=== PATIENT | female | born 1985 | race Caucasian/White ===

== ENCOUNTER 2022-10-08 19:29 | Inpatient (IN) | payer BC, MEDICAID ==
[~2022-10-08] VITALS: Ht 162.6 cm; Wt 62.2 kg
[2022-10-08 20:33] VITALS: BP_SYST 115
[2022-10-08 20:39] LABS: BASOPHILS % (AUTO) 0.4 % (0.0-2.0); EOSINOPHILS # (AUTO) 0.1 K/uL (0.0-0.4); EOSINOPHILS % (AUTO) 0.4 % (0.0-4.0); HEMATOCRIT 39.1 % (36-48); HEMOGLOBIN 13.2 g/dL (12.0-16.0); LYMPHOCYTES # (AUTO) 1.6 K/uL (1.0-5.5); LYMPHOCYTES % (AUTO) 12.8 % (20.5-51.5); MEAN CORPUSCULAR HEMOGLOBIN 30 pg (27-31); MEAN CORPUSCULAR HGB CONC 34 % (32-36); MEAN CORPUSCULAR VOLUME 89 fL (79.0-98.0); MONOCYTES # (AUTO) 0.3 K/uL (0.0-1.0); MONOCYTES % (AUTO) 2.8 % (1.7-9.3); NEUTROPHILS # (AUTO) 10.3 K/uL (1.8-7.7); NEUTROPHILS % (AUTO) 83.6 % (40.0-70.0); PLATELET COUNT (AUTO) 192 K/uL (130-430); RED BLOOD CELL COUNT(AUTO) 4.42 MIL/uL (4.2-6.2); RED CELL DISTRIBUTION WIDTH 13.2 % (9.0-15.0); WHITE BLOOD COUNT (AUTO) 12.4 K/uL (4.8-10.8)
[2022-10-08 20:48] LABS: BILIRUBIN,URINE NEGATIVE (NEGATIVE); BLOOD, URINE 1+ (NEGATIVE); CLARITY/URINE CLEAR (CLEAR); COLOR,URINE YELLOW (YELLOW); GLUCOSE,URINE NEGATIVE (NEGATIVE); KETONES,URINE 2+ (NEGATIVE); LEUKOCYTE ESTERASE ,URINE TRACE (NEGATIVE); NITRITE, URINE NEGATIVE (NEGATIVE); PH,URINE 6.5 (5.0-8.0); PROTEIN URINE NEGATIVE (NEGATIVE); UROBILINOGEN,URINE 0.2 (0.2-1.0)
[2022-10-08 20:53] LABS: CALCIUM 9.4 mg/dL (8.4-11.0); CREATININE 0.73 mg/dL (0.55-1.30)
[2022-10-08 20:59] LABS: TOTAL BILIRUBIN 0.7 mg/dL (0.0-1.0)
[2022-10-08 20:59] LABS: BACTERIA,URINE RARE /HPF (None Seen); MUCUS,URINE None Seen /LPF (None Seen); WBC,URINE 0-3 /HPF (0-3)
[2022-10-08] MEDS ORDERED: NACL 0.9% 1,000 ML IV ONE (22:30)
[2022-10-08] MEDS ORDERED: KETOROLAC TROMETHAMINE 30 MG VIAL IVP ONE (22:30)
[2022-10-08] MEDS ORDERED: ONDANSETRON HCL 4 MG/2 ML VIAL IVP ONE (23:30)
[2022-10-08] MEDS ORDERED: MORPHINE 4 MG INJ. 4 MG/ML VIAL IVP ONE (23:30)
[2022-10-09] MEDS ORDERED: cefTRIAXone 1 GM IVPB PREMIX 50 ML IV ONE
[2022-10-09] MEDS ORDERED: ACETAMINOPHEN 325 MG TABLET PO PRN (00:15)
[2022-10-09 01:30] VITALS: BP_SYST 115
[2022-10-09] MEDS: ONDANSETRON HCL 4 MG/2 ML VIAL IVP PRN ×2 (02:18→17:42)
[2022-10-09] MEDS: MORPHINE 2 MG/ML INJ. SYRINGE IVP PRN ×2 (02:20→17:26)
[2022-10-09] MEDS: D5/0.45 NS 1,000 ML IV SCH ×2 (02:30→13:56)
[2022-10-09] MEDS ORDERED: iohexoL 350 mgI/mL, 100 ML INFUS..BTL IV ONE (02:49)
[2022-10-09] MEDS ORDERED: PIPERACILLIN/TAZOBACTAM 3.375 GM/VIAL (ZOSYN) IV ONE (05:27)
[2022-10-09] MEDS ORDERED: PIPERACILLIN/TAZO 3.375 GM in NS 50 ML IV SCH (06:00)
[2022-10-09 08:00] VITALS: BP_SYST 97
[2022-10-09 12:00] VITALS: BP_SYST 107
[2022-10-09] MEDS: PIPERACILLIN/TAZO 3.375 GM in NS 50 ML IV SCH ×3 (12:02→23:44)
[2022-10-09] MEDS: metroNIDAZOLE 250 MG TABLET PO SCH ×2 (13:56→22:06)
[2022-10-09 16:00] VITALS: BP_SYST 97
[2022-10-09 20:00] VITALS: BP_SYST 109
[2022-10-10 01:00] VITALS: BP_SYST 97
[2022-10-10] MEDS: PIPERACILLIN/TAZO 3.375 GM in NS 50 ML IV SCH ×4 (05:49→23:10)
[2022-10-10 06:12] LABS: BASOPHILS % (AUTO) 0.5 % (0.0-2.0); EOSINOPHILS # (AUTO) 0.2 K/uL (0.0-0.4); EOSINOPHILS % (AUTO) 4.3 % (0.0-4.0); HEMATOCRIT 33.7 % (36-48); HEMOGLOBIN 11.6 g/dL (12.0-16.0); LYMPHOCYTES # (AUTO) 1.4 K/uL (1.0-5.5); LYMPHOCYTES % (AUTO) 29.9 % (20.5-51.5); MEAN CORPUSCULAR HEMOGLOBIN 31 pg (27-31); MEAN CORPUSCULAR HGB CONC 35 % (32-36); MEAN CORPUSCULAR VOLUME 89 fL (79.0-98.0); MONOCYTES # (AUTO) 0.3 K/uL (0.0-1.0); MONOCYTES % (AUTO) 5.8 % (1.7-9.3); NEUTROPHILS # (AUTO) 2.8 K/uL (1.8-7.7); NEUTROPHILS % (AUTO) 59.5 % (40.0-70.0); PLATELET COUNT (AUTO) 162 K/uL (130-430); RED BLOOD CELL COUNT(AUTO) 3.77 MIL/uL (4.2-6.2); RED CELL DISTRIBUTION WIDTH 13.3 % (9.0-15.0); WHITE BLOOD COUNT (AUTO) 4.7 K/uL (4.8-10.8)
[2022-10-10 06:37] LABS: CALCIUM 8.3 mg/dL (8.4-11.0); CREATININE 0.72 mg/dL (0.55-1.30)
[2022-10-10 08:00] VITALS: BP_SYST 116
[2022-10-10] MEDS: D5/0.45 NS 1,000 ML IV SCH ×2 (08:44→16:43)
[2022-10-10] MEDS: ONDANSETRON HCL 4 MG/2 ML VIAL IVP PRN (10:29)
[2022-10-10] MEDS: MORPHINE 2 MG/ML INJ. SYRINGE IVP PRN (10:29)
[2022-10-10 11:46] VITALS: BP_SYST 105
[2022-10-10] MEDS: metroNIDAZOLE 250 MG TABLET PO SCH ×2 (13:45→21:49)
[2022-10-10 15:40] VITALS: BP_SYST 110
[2022-10-10 20:10] VITALS: BP_SYST 110
[2022-10-11 01:13] VITALS: BP_SYST 100
[2022-10-11] MEDS: metroNIDAZOLE 250 MG TABLET PO SCH (05:18)
[2022-10-11] MEDS: PIPERACILLIN/TAZO 3.375 GM in NS 50 ML IV SCH (05:18)
[2022-10-11 08:26] VITALS: BP_SYST 101
[2022-10-11] MEDS ORDERED: LEVO750T64 PO (10:02)
[2022-10-11] MEDS ORDERED: DOXY100C5 PO (10:02)
[2022-10-11 10:16] VITALS: BP_SYST 101
== END 2022-10-11 10:55 | disposition home or self-care (01) | DRG 758 ==
LOC: SED 19:29 → SMU 10-09 00:11
PROVIDERS: ADMIT Internal Medicine; ATTEND Internal Medicine
DX: N70.01 Acute salpingitis (principal); R65.10 Systemic inflammatory response syndrome (SIRS) of non-infectious origin without acute organ dysfunction; D25.2 Subserosal leiomyoma of uterus; N20.0 Calculus of kidney; N91.2 Amenorrhea, unspecified; G43.909 Migraine, unspecified, not intractable, without status migrainosus; Z20.822 Contact with and (suspected) exposure to COVID-19
CPT/HCPCS: 36415; 76376; 76856-TC; 80048; 80053; 81000; 83605; 83690; 85025; 86592; 86694; 86695; 86696; 87040; 87491; 96361; 96365; 96375; 99285; J0696; J1885; J2270; J2405; J2543; Q9967